=== PATIENT | female | born 1980 ===

== ENCOUNTER 2018-01-10 08:05 | Outpatient (CLI) | payer OTHER ==
--- NOTE | 2018-01-10 08:39 | XRay Report ---
XRAY LEFT KNEE 4 THREE VIEWS: 01/10/18 CLINICAL: Left knee pain. FINDINGS: A no fracture or dislocation. 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 There is minimal joint space narrowing with very early osteophyte formation. The lateral joint space is normal. A tiny inferior patellofemoral osteophyte. No joint effusion.Normal soft tissues. 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
== END 2018-01-10 08:06 | disposition home or self-care (01) ==
LOC: SPVIMAG 08:05
PROVIDERS: ATTEND Orthopaedic Surgery
DX: M17.12 Unilateral primary osteoarthritis, left knee (principal)